=== PATIENT | male | born 1935 | race Caucasian/White ===

== ENCOUNTER → 2017-05-22 | Day surgery (SDC) | payer MEDICARE, BC ==
[~2017-05-22] VITALS: Ht 172.7 cm; Wt 98.6 kg
[~2017-05-22] MED LIST: ALLO100T PO; BACITRACIN OPHT OINT 3.5 GM TUBO ONE; BACITRACIN TOP OINT 15 GM TUBE ONE; BUME2TAB PO; BUPIVACAINE HCL PF 0.5% 30 ML VIAL ONE; BYST10TA2 PO; CYMB60CA PO; DIOV320T6 PO; EPINEPHrine HCL (1:1000) 1 MG/ML VIAL ONE; EXEN1INJ2 SQ; HYDR-3580 PO; LACTATED RINGER'S 1000 ML INJ 500 ML IV SCH; LIDOCAINE 1%/EPINEPHrine 1:100,000 SOLN 20 ML VIAL ONE; LIDOCAINE HCL 2% 50 ML VIAL ONE; LINA145C PO; MINERAL OIL 10 ML VIAL ONE; NEOMYCIN/POLYMYXIN 1 ML G.U. IRRIGANT ONE; OMEP20TA PO; POTA20TA5 PO; PROP150T PO; SITA1TAB2 PO; THROMBIN (TOPICAL) 5,000 UNIT VIAL ONE; VICT18IN SQ; XARE20TA PO; ceFAZolin 2 GM PREMIX 50 ML IV SCH
[2017-05-22 10:14] VITALS: BP 122/60; PULSE 93; RESP 18; TEMP 98.4; O2SAT 97
[2017-05-22 13:25] VITALS: TEMP 98.1
--- NOTE | 2017-05-22 13:25 | PD.OP ---
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
[2017-05-22 13:45] VITALS: BP 128/72; PULSE 94; RESP 16; O2SAT 100
--- NOTE | 2017-05-23 17:31 | MP ---
cc: CLARITZA HODGES DATE OF SURGERY May 22, 2017 PREOPERATIVE DIAGNOSIS Squamous cell carcinoma left hand dorsum POSTOPERATIVE DIAGNOSIS Squamous cell carcinoma left hand dorsum PROCEDURE Wide excision squamous cell carcinoma left hand dorsum SURGEON Dr. Stefanie Hodges ANESTHESIA Local 10 mL of 2% lidocaine, __% Marcaine ESTIMATED BLOOD LOSS Minimal TOURNIQUET TIME 10 minutes at 250 mmHg DISPOSITION The patient was recovered, sent to recovery room in stable condition. INDICATIONS The patient is an 81-year-old male seen by me in the office for a biopsy-proven squamous cell carcinoma invasive from left hand dorsum. On examination, he had lesion a over the dorsal aspect of the hand corresponding to the fourth metacarpal neck/shaft region measuring about 0.5 to 1 cm. The patient was consented for wide excision, possible flap closure. He was explained risks and benefits of the procedure. PROCEDURE IN DETAIL The patient was brought to the operating room. The left upper extremity was thoroughly prepped and draped. Incision site was marked in an elliptical fashion around the lesion. The patient also had multiple skin lesions of both upper extremities. About 10 mL of local anesthesia containing mixture of 2% lidocaine __% Marcaine was injected across incision site. Limb was elevated and tourniquet was inflated to 250 mmHg. Incision was then made over the proposed incision site. Elliptical skin incision was made around the lesion with clear margins. Sharp dissection was carried out excising the lesion. The elliptical skin was then marked as two long strand as distal and one short strand as ulnar. The specimen was sent for frozen section. The frozen section was positive for invasive squamous cell carcinoma. The margins were clear for invasive cancer. 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 Part of the ulnar margin was re-excised and sent for pathology as a prominent specimen. Tourniquet was deflated. Total tourniquet time was 10 minutes. We had good distal circulation after release of tourniquet. Bleeding points were cauterized with bipolar cautery. Intradermal stitches were applied initially using 5-0 Vicryl in an interrupted fashion. This was then followed by 5-0 nylon in a horizontal mattress interrupted fashion. Part of the skin excision site was left open to heal by secondary intention. Xeroform, bacitracin dressing applied. Bulky hand dressing was applied which was held in place by Sof-Rol and bias hand wrap. The patient was recovered and sent to recovery room in stable condition. He will follow up in [id number] days' time for a dressing change. Claritza Hodges MD SE/ /1:25 PM /5:20 PM
== END | disposition home or self-care (01) ==
LOC: PHSDC 09:23
PROVIDERS: ATTEND Surgery Surgery of the Hand
DX: D04.62 Carcinoma in situ of skin of left upper limb, including shoulder (principal); L57.0 Actinic keratosis; I10 Essential (primary) hypertension; E11.9 Type 2 diabetes mellitus without complications; M19.90 Unspecified osteoarthritis, unspecified site
CPT/HCPCS: 88305; 88331; J0171